=== PATIENT | female | born 1975 | race Two or more races ===

== ENCOUNTER 2019-03-20 13:35 | Emergency (ER) | payer SELFPAY ==
--- NOTE | 2019-03-20 13:57 | ER Document Report ---
ED General - General Chief Complaint: Palpitations Stated Complaint: ELEVATED HEART RATE Time Seen by Provider: 03/20/19 13:52 Notes: 43-year-old female presents with left onset palpitations shortness of breath, anxiety and hand tingling. It has been present for about 20 minutes. Happened at rest. Never happened before. No chest pain or pressure no shortness of breath no pleuritic pain and no swelling of extremities. No recent travel no smoking or drugs. Extreme stress in life, lately, and she feels stressed out in general but is never had a panic or anxiety attack. TRAVEL OUTSIDE OF THE [place] IN LAST 30 DAYS: No - Related Data Allergies/Adverse Reactions: No Known Allergies Allergy (Verified 03/20/19 13:36) Past Medical History - Social History Smoking Status: Never Smoker Family History: None Review of Systems - Review of Systems Notes: REVIEW OF SYSTEMS GEN: Denies fever, chills, weight loss ENT: Denies sore throat, nasal discharge, ear pain EYES: Denies blurry vision, eye pain, discharge CV: Positive palpitations RESP: Denies cough, shortness of breath, wheezing GI: Denies abdominal pain, nausea, vomiting, diarrhea MSK: Denies joint pain/swelling, edema, SKIN: Denies rash, skin lesions LYMPH: Denies swollen glands/lymph nodes NEURO: Denies headache, focal weakness or numbness, dizziness PSYCH: Denies depression, suicidal or homicidal ideation PHYSICAL EXAMINATION General: No acute distress, well-nourished Head: Atraumatic, normocephalic ENT: Mouth normal, oropharynx moist, no exudates or tonsillar enlargement Eyes: Conjunctiva normal, pupils equal, lids normal Neck: No JVD, supple, no guarding CVS: Cardiac Resp: No resp distress, equal and normal breath sounds bilaterally GI: Nondistended, soft, no tenderness to palpation, no rebound or guarding Ext: No deformities, no edema, normal range of motion in upper and lower ext Back: No CVA or midline TTP Skin: No rash, warm Lymphatic: No lymphadeopathy noted Neuro: Awake, alert. Face symmetric. GCS 15. History: Anxious appearing Physical Exam - Vital signs Vitals: Resp BP Pulse Ox 21 H 136/97 H 100 03/20/19 14:06 03/20/19 14:06 03/20/19 14:06 Course - Re-evaluation Re-evalutation: 03/20/19 14:58 Patient presents with palpitations and tingling looks nervous and stressed out, appears to be having a panic attack. She is in sinus tachycardia. I checked her for N normalities check troponin all negative. Give her some Ativan. On reassessment initially she was quite tearful, having had some family issues with her daughter. Let her know that her work-up was negative and she did say she is feeling better from a physical standpoint. She stable for discharge home to follow-up with her primary. I have discussed with the patient there likely diagnosis, aftercare plan, follow-up plans and my usual and customary return precautions. They verbalized understanding of this. - Vital Signs Vital signs: Temp Pulse Resp BP Pulse Ox 21 H 136/97 H 100 03/20/19 14:06 03/20/19 14:06 03/20/19 14:06 - Laboratory Result Diagrams: 03/20/19 13:54 03/20/19 13:54 Laboratory results interpreted by me: 03/20/19 03/20/19 13:54 13:54 Hgb 10.0 L Hct 32.0 L MCV 66 L MCH 20.7 L MCHC 31.3 L RDW 20.0 H Carbon Dioxide 21 L Glucose 122 H - EKG Interpretation by [facility] EKG shows normal: Sinus rhythm Rate: Tachycardia Rhythm: NSR - No ST or T wave changes no signs of arrhythmias no signs of right ventricular strain or PE Discharge - Discharge Clinical Impression: Palpitations Condition: Good Disposition: HOME, SELF-CARE Instructions: Palpitations (Irregular or Rapid Heartrate) ([facility]) Additional Instructions: Please follow-up with your primary care within 1 week
[2019-03-20] MEDS ORDERED: LORAZEPAM INJ 2 MG/1 ML VIAL IV ONE (13:58)
[2019-03-20 14:25] LABS: ABSOLUTE BASOPHILS # (AUTO) 0.1 10^3/uL (0.0-0.2); ABSOLUTE EOSINOPHILS # (AUTO) 0.2 10^3/uL (0.0-0.6); ABSOLUTE LYMPHOCYTES (AUTO) 2.1 10^3/uL (0.5-4.7); ABSOLUTE MONOCYTES (AUTO) 0.6 10^3/uL (0.1-1.4); BASOPHILS % (AUTO) 0.7 % (0-2); EOSINOPHILS % (AUTO) 2.2 % (0-6); LYMPHOCYTES % (AUTO) 23.3 % (13-45); MEAN CORPUSCULAR HEMOGLOBIN 20.7 pg (27.0-33.4); MEAN CORPUSCULAR HGB CONC 31.3 g/dL (32.0-36.0); MEAN CORPUSCULAR VOLUME 66 fl (80-97); MONOCYTES % (AUTO) 6.8 % (3-13); PLATELET COUNT 429 10^3/uL (150-450); RED BLOOD COUNT 4.85 10^6/uL (3.72-5.28); TOTAL CELLS COUNTED % (AUTO) 100 %
[2019-03-20 14:35] LABS: ANION GAP 13 (5-19); BLOOD UREA NITROGEN 12 mg/dL (7-20); CALCIUM 10.2 mg/dL (8.4-10.2); CARBON DIOXIDE 21 mmol/L (22-30); CHLORIDE 106 mmol/L (98-107); GLUCOSE 122 mg/dL (75-110); POTASSIUM 3.7 mmol/L (3.6-5.0)
[2019-03-20 15:00] VITALS: BP 129/95
--- NOTE | 2019-03-21 23:25 | EKG REPORT ---
SEVERITY:- OTHERWISE NORMAL ECG - SINUS TACHYCARDIA : Confirmed by: Phillip Brown 21-Mar-2019 23:24:34
== END 2019-03-20 15:07 | disposition home or self-care (01) ==
LOC: ER 13:35
DX: R00.2 Palpitations (principal); R06.02 Shortness of breath; R20.0 Anesthesia of skin; F41.9 Anxiety disorder, unspecified
CPT/HCPCS: 93005; 99285; 96374; 36415; 85025; 80048; 93010; J2060